=== PATIENT | female | born 1960 | race American Indian/Alaskan Native ===

== ENCOUNTER 2017-08-24 20:18 | Emergency (ER) | payer SELFPAY ==
[2017-08-24 21:34] LABS: Basophils % (Auto) 0.8 % (0.0-1.8); Eosinophils % (Auto) 0.3 % (0.0-4.3); Hematocrit 42.9 % (30.3-42.9); Hemoglobin 13.9 gm/dl (10.1-14.3); Mean Corpuscular HGB Conc 32 % (30-34); Mean Corpuscular Hemoglobin 35 pg (28-32); Mean Corpuscular Volume 107 fl (79-97); Platelet Count 221 K/mm3 (140-440); Red Blood Count 4.02 M/mm3 (3.65-5.03); Red Cell Distribution Width 15.1 % (13.2-15.2); White Blood Count 9.5 K/mm3 (4.5-11.0)
--- NOTE | 2017-08-24 21:34 | Cat Scan Report ---
FINAL REPORT PROCEDURE: CT HEAD/BRAIN WO CON TECHNIQUE: Computerized tomography of the head was performed without contrast material. HISTORY: RECENT MX FALLS COMPARISON: No prior studies are available for comparison. FINDINGS: Skull and scalp: Normal. Paranasal sinuses: Normal. Ventricles and subarachnoid spaces: Normal. Cerebrum: No evidence of hemorrhage, acute infarction or mass . Cerebellum and brainstem: No evidence of hemorrhage, acute infarction or mass. Vasculature: Normal. Comments: None. IMPRESSION: Normal Examination
[2017-08-24 21:48] LABS: Alanine Aminotransferase 46 units/L (7-56); Albumin 4.2 g/dL (3.9-5); Albumin/Globulin Ratio 1.1 %; Alkaline Phosphatase 103 units/L (35-129); Anion Gap 25 mmol/L; BUN/Creatinine Ratio 16.66; Blood Urea Nitrogen 10 mg/dL (7-17); Calcium 9.4 mg/dL (8.4-10.2); Carbon Dioxide 21 mmol/L (22-30); Chloride 93.3 mmol/L (98-107); Glucose 77 mg/dL (65-100); Potassium 4.8 mmol/L (3.6-5.0); Sodium 134 mmol/L (137-145); Total Protein 7.9 g/dL (6.3-8.2)
--- NOTE | 2017-08-24 22:03 | XRay Report ---
FINAL REPORT PROCEDURE: XR HAND 3+V RT TECHNIQUE: RIGHT hand radiographs, AP, lateral, and oblique views. CPT 79645-CT HISTORY: pain, swelling, deformity R hand s/p GLF COMPARISON: No prior studies are available for comparison. FINDINGS: Fracture (s) and/or Dislocation(s): Acute comminuted fracture is noted involving the distal radial metaphysis with posterior angulation of the distal fragment. There is also a comminuted fracture involving the ulnar styloid with mild degree posterior displacement. There is also irregularity of the tip of 5th distal phalanx with evidence of a fracture fragment. However the fracture margins are well-defined most likely representing an old fracture deformity.. Joint space(s): Normal . Soft tissues: Normal . Bone mineralization: Normal . Foreign bodies: None . IMPRESSION: Comminuted fractures involving the distal radial metaphysis and ulnar styloid. A fracture fragment involving the tip of the 5th distal phalanx appears to be of chronic nature. Clinical correlation is recommended..
[2017-08-24] MEDS ORDERED: PERCOCET 5/325 PO ONE (22:18)
--- NOTE | 2017-08-24 22:34 | Emergency Department Report ---
HPI - General Chief Complaint: Neuro Symptoms/Deficit Time Seen by Provider: 08/24/17 22:01 - HPI HPI: 56-year-old female presents to the emergency department, dropped off by her , with complaint of a ground-level fall earlier this morning and subsequent right wrist and arm pain. She has a history of lower extremity neuropathy that sometimes will cause some numbness in the legs and will make her fall. She was at the [facility] this morning when she lost her balance and tried to brace herself with her outstretched arms. She denies hitting her head or any loss of consciousness. When she got up she noticed that the wrist area looked deformed and swollen. She went home and put some ice on it but it continued to hurt so she came in for further evaluation. She is right-hand dominant. She also has a history of hypertension. She did not take anything for her symptoms prior to presentation. She does not have a primary care physician. ED Past Medical Hx - Past Medical History Previous Medical History?: Yes Hx Hypertension: Yes - Surgical History Past Surgical History?: No Additional Surgical History: - Social History Smoking Status: Current Every Day Smoker Substance Use Type: Alcohol - Medications Home Medications: Home Medications Medication Instructions Recorded Confirmed Last Taken Type Hydrochlorothiazide [HCTZ] 25 mg PO QDAY #30 tablet 09/09/15 Unknown Rx Spironolactone [Aldactone] 25 mg PO BID 09/09/15 09/09/15 09/09/15 13:10 History HYDROcodone/APAP 5-325 [[place] 1 each PO Q6HR PRN #14 tablet 08/25/17 Unknown Rx 5/325] ED Review of Systems ROS: Stated complaint: RT HAND PAIN Other details as noted in HPI Comment: All other systems reviewed and negative Constitutional: denies: chills, fever Eyes: denies: eye pain, eye discharge, vision change ENT: denies: ear pain, throat pain Respiratory: denies: cough, shortness of breath, wheezing Cardiovascular: denies: chest pain, palpitations Gastrointestinal: denies: abdominal pain, nausea, diarrhea Genitourinary: denies: urgency, dysuria, discharge Musculoskeletal: joint swelling, arthralgia Skin: other (ecchymosis). denies: rash Neurological: denies: headache, weakness, paresthesias Physical Exam - Physical Exam Vital Signs: Vital Signs 08/24/17 08/24/17 20:34 21:55 Temperature 98.8 F Pulse Rate 98 H Respiratory 18 18 Rate Blood Pressure 138/86 Blood Pressure 138/86 [Left] O2 Sat by Pulse 98 100 Oximetry Physical Exam: GENERAL: The patient is well-developed well-nourished. HENT: Normocephalic. Atraumatic. Patient has moist mucous membranes. EYES: Extraocular motions are intact. Pupils equal reactive to light bilaterally. NECK: Supple. Trachea is midline. CHEST/LUNGS: Clear to auscultation. There is no respiratory distress noted. HEART/CARDIOVASCULAR: Regular. There is no tachycardia. There is no gallop rub or murmur. ABDOMEN: Abdomen is soft, nontender. Patient has normal bowel sounds. There is no abdominal distention. SKIN: There is some nonpitting swelling to the right distal forearm and wrist that is worst in the dorsum/posterior region and there is some ecchymosis seen to the volar region. NEURO: The patient is awake, alert, and oriented. The patient is cooperative. The patient has no focal neurologic deficits. The patient has normal speech and gait. MUSCULOSKELETAL: Tenderness to palpation to the distal right forearm and right wrist where the patient appears to have a fracture.there is posterior swelling. Decreased range of motion of the right hand and wrist secondary to pain. Radial pulses posterior 4 bilaterally. Cap refill is 2 seconds. ED Course Vital Signs 08/24/17 08/24/17 20:34 21:55 Temperature 98.8 F Pulse Rate 98 H Respiratory 18 18 Rate Blood Pressure 138/86 Blood Pressure 138/86 [Left] O2 Sat by Pulse 98 100 Oximetry - Consultations Consultation #1: I spoke to the orthopedist transmission superintendent, Dr. Arizmendi, who listened to the x-ray results and presentation and agrees with the plan for a splint and outpatient follow-up. 08/24/17 22:34 ED Medical Decision Making - Lab Data Result diagrams: 08/24/17 21:11 08/24/17 21:11 - Radiology Data Radiology results: report reviewed WO CON TECHNIQUE: Computerized tomography of the head was performed without contrast material. HISTORY: RECENT MX FALLS COMPARISON: No prior studies are available for comparison. FINDINGS: Skull and scalp: Normal. Paranasal sinuses: Normal. Ventricles and subarachnoid spaces: Normal. Cerebrum: No evidence of hemorrhage, acute infarction or mass . Cerebellum and brainstem: No evidence of hemorrhage, acute infarction or mass. Vasculature: Normal. Comments: None. IMPRESSION: Normal Examination PROCEDURE: XR HAND 3+V RT TECHNIQUE: RIGHT hand radiographs, AP, lateral, and oblique views. CPT 92928-SX HISTORY: pain, swelling, deformity R hand s/p GLF COMPARISON: No prior studies are available for comparison. FINDINGS: Fracture (s) and/or Dislocation(s): Acute comminuted fracture is noted involving the distal radial metaphysis with posterior angulation of the distal fragment. There is also a comminuted fracture involving the ulnar styloid with mild degree posterior displacement. There is also irregularity of the tip of 5th distal phalanx with evidence of a fracture fragment. However the fracture margins are well-defined most likely representing an old fracture deformity.. Joint space(s): Normal . Soft tissues: Normal . Bone mineralization: Normal . Foreign bodies: None . IMPRESSION: Comminuted fractures involving the distal radial metaphysis and ulnar styloid. A fracture fragment involving the tip of the 5th distal phalanx appears to be of chronic nature. Clinical correlation is recommended.. - Medical Decision Making 56-year-old female presents to the emergency department with a complaint of a fall earlier today secondary to diabetic neuropathy causing some pain and deformity to the right wrist. X-ray confirms a distal radius comminuted fracture with a comminuted fracture of the ulnar styloid. Spoke to the orthopedist who agrees with outpatient follow-up and the patient was placed in a splint. A CT of the head was ordered and completed prior to me seeing the patient but it resulted as normal as well. She did not hit her head or have any loss of consciousness. A urinalysis was done as the patient says she was recently told that she has hematuria. The urinalysis today did not show any hematuria or signs of UTI. She was given referrals for orthopedist and some pain medication for home. She will return to the ER with any worsening of her symptoms or any acute distress. - Differential Diagnosis wrist fracture, contusion, vasovagal, orthostatic hypotension, diabetic alexa Critical Care Time: No Critical care attestation.: If time is entered above; I have spent that time in minutes in the direct care of this critically ill patient, excluding procedure time. ED Disposition Clinical Impression: Right forearm fracture Qualifiers: Encounter type: initial encounter Fracture type: closed Qualified Code(s): S52.91XA - Unspecified fracture of right forearm, initial encounter for closed fracture Right wrist fracture Qualifiers: Encounter type: initial encounter Fracture type: closed Qualified Code(s): S62.101A - Fracture of unspecified carpal bone, right wrist, initial encounter for closed fracture Fall Qualifiers: Encounter type: initial encounter Qualified Code(s): W19.XXXA - Unspecified fall, initial encounter Disposition: TO HOME OR SELFCARE Is pt being admited?: No Condition: Stable Instructions: Wrist Fracture in Adults (ED) Additional Instructions: Remain in the splint until follow-up with the orthopedist. Make sure that the splint does not get wet otherwise it will dissolve. You should cover it and a plastic bag when taking a shower or bath. You can use ice, wrapped in a bag and towel, over the splint to help with swelling over the next few days. I have given you a referral for a local orthopedist, Dr. Arizmendi, to follow up regarding her fracture. Return to the emergency Department with any worsening of your symptoms or any acute distress. You have been prescribed a medication that is sedating and therefore should not be taken prior to driving, working, and responsible for children and in no way should be mixed with alcohol of any quantity. Prescriptions: HYDROcodone/APAP 5-325 [[place] 5/325] 1 each PO Q6HR PRN #14 tablet PRN Reason: Pain Referrals: [facility] [Other] - 3-5 Days MARCELL ARIZMENDI MD [Staff Physician] - 3-5 Days Time of Disposition: 01:03
[2017-08-25 01:39] LABS: Bilirubin,Urine NEG (Negative); Blood,Urine SM (Negative); Ketones,Urine TR mg/dL (Negative); Leukocyte Esterase,Urine SM (Negative); Mucus,Urine FEW /HPF; Nitrite,Urine NEG (Negative); Protein,Urine <15 mg/dL mg/dL (Negative); Urobilinogen,Urine < 2.0 mg/dL (<2.0)
[2017-08-25 01:57] VITALS: BP 140/82
== END 2017-08-25 02:02 | disposition home or self-care (01) ==
LOC: ED 20:18
DX: S52.91XA Unspecified fracture of right forearm, initial encounter for closed fracture (principal); S62.101A Fracture of unspecified carpal bone, right wrist, initial encounter for closed fracture; I10 Essential (primary) hypertension; F17.200 Nicotine dependence, unspecified, uncomplicated; W19.XXXA Unspecified fall, initial encounter; Y93.9 Activity, unspecified; Y99.9 Unspecified external cause status; Y92.89 Other specified places as the place of occurrence of the external cause
CPT/HCPCS: 36415; 70450; 80053; 81001; 85025

== ENCOUNTER 2017-09-14 11:19 | Emergency (ER) | payer SELFPAY ==
[2017-09-14 11:37] VITALS: BP 144/91
--- NOTE | 2017-09-14 13:18 | Emergency Department Report ---
Upper Extremity - [facility] Chief Complaint: Extremity Injury, Upper Stated Complaint: RIGHT HAND NUMBNESS DUE TO CAST,BROKEN WRIST Time Seen by Provider: 09/14/17 13:08 Upper Extremity: Right Wrist (pain aching tingling since fracture 08/24/2017 " splint too tight") Occurred When: >5 Days (08/24/2017) Mechanism: Fall Severity: moderate Symptoms: Yes Pain with Movement, Yes Deformity, Yes Limited Range of Movement, Yes Numbness (intermittent ), No Weakness, No Swelling, No Bruising/Ecchymosis, No Laceration or Abrasion ED Review of Systems ROS: Stated complaint: RIGHT HAND NUMBNESS DUE TO CAST,BROKEN WRIST Other details as noted in HPI Constitutional: denies: chills, fever Eyes: denies: eye pain, eye discharge, vision change ENT: denies: ear pain, throat pain Respiratory: denies: cough, shortness of breath, wheezing Cardiovascular: as per HPI Endocrine: no symptoms reported Gastrointestinal: denies: abdominal pain, nausea, diarrhea Genitourinary: denies: urgency, dysuria, discharge Musculoskeletal: arthralgia, myalgia, other (right wrist ) Skin: denies: rash, lesions Neurological: numbness (right 4&5 th digits intermittent), abnormal gait (left sided weakness chronic ). 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) Additional medical history: Neuropathy - Surgical History Past Surgical History?: Yes Additional Surgical History: - Social History Smoking Status: Current Every Day Smoker Substance Use Type: Alcohol, Prescribed - Medications Home Medications: Home Medications Medication Instructions Recorded Confirmed Last Taken Type HYDROcodone/APAP 5-325 [[place] 1 each PO Q6HR PRN #14 tablet 08/25/17 Unknown Rx 5/325] Acetaminophen/Codeine [Tylenol 1 tab PO Q8H PRN #20 tab 09/14/17 Unknown Rx /Codeine # 3 tab] Hydrochlorothiazide [HCTZ] 25 mg PO QDAY #30 tablet 09/14/17 Unknown Rx Spironolactone [Aldactone] 25 mg PO BID #60 tablet 09/14/17 Unknown Rx Upper Extremity Exam - Exam General: Vital signs noted. No distress. Alert and acting appropriately. Head and Torso: No HEENT Abnormality, No Neck Tenderness, No Chest/Lungs Abnormality, No Abdominal Tenderness, No Back Tenderness Shoulder Exam: Yes Normal Range of Motion in Shoulder, No Shoulder Tenderness, No Clavicle Tenderness, No Shoulder Deformity, No AC Joint Tenderness Arm Exam: No Arm/Humerus Tenderness, No Arm Deformity Elbow: No Elbow Tenderness, No Normal Range of Motion in Elbow, No Elbow Deformity Forearm: No Forearm Tenderness, No Forearm Deformity, No Pain with Pronation, No Pain with Supination Wrist: Yes Wrist Tenderness, Yes Wrist Deformity (mild right lateral wrist deformity ), No Normal ROM in Wrist (rom restricted by pain ), No Snuffbox Tenderness, No Pain with Axial Thumb Compression Hand: Yes Normal ROM in Digit(s), No Hand Tenderness, No Hand Deformity, No Digit Tenderness, No Digit(s) Deformity, No Tendon Dysfunction CMS Exam: Yes Normal Distal Pulses, Yes Normal Capillary Refill, No Broken Skin , No Normal Distal Sensation (numbness to 4&5 digits ulnar side ) ED Course Vital Signs 09/14/17 11:29 Temperature 98.5 F Pulse Rate 96 H Respiratory 18 Rate Blood Pressure 144/91 O2 Sat by Pulse 99 Oximetry ED Medical Decision Making - Radiology Data Radiology results: report reviewed same as 08/24/2017, comminuted fracture of the distal radius with intra- articulare estension adn posterior angulation, U[place]ar syloid fracture - Medical Decision Making pt isia 57 y/o aaf who presents splint problem of right wrist, causing right wrist pain and tingling s/p fall and fracture on 08/24/2017 extremity splinted however pt states unable to follow up with orthopedics becuase she cannot afford co pay, pt denies new injury fall or trauma no change in symptoms same location duration and intensity as 08/24/2017, pt does endorse splint getting too tight at time and she cannot release candida wrap and put it back on properly, exam: mild lateral right wrist deformity , radial pulses + 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 Arizmendi will today to setup appointment. pt verbalized agreement and understanding of same, splint check completed at this time, spacing appropriate to 2 finger insertion, sonar subsystem equipment operator < 3 sec bilat pt advises that she has just made appointment with ortho Dr. Arizmendi will go in tomorrow. provider repeated splint care instructions including direction to return to emergency if symptoms worsen. pt again verbalizes understanding of same. Critical care attestation.: If time is entered above; I have spent that time in minutes in the direct care of this critically ill patient, excluding procedure time. ED Disposition Clinical Impression: Aftercare for cast or splint check or change Wrist fracture, closed Qualifiers: Encounter type: subsequent encounter Laterality: right Fracture healing: with delayed healing Qualified Code(s): S62.101G - Fracture of unspecified carpal bone, right wrist, subsequent encounter for fracture with delayed healing Disposition: TO HOME OR SELFCARE Is pt being admited?: No Does the pt Need Aspirin: No Condition: Good Instructions: Wrist Fracture in Adults (ED), Splint Care (ED) Prescriptions: Acetaminophen/Codeine [Tylenol /Codeine # 3 tab] 1 tab PO Q8H PRN #20 tab PRN Reason: Pain Hydrochlorothiazide [HCTZ] 25 mg PO QDAY #30 tablet Spironolactone [Aldactone] 25 mg PO BID #60 tablet Referrals: PRIMARY [facility] [Primary Care Provider] - 3-5 Days MARCELL ARIZMENDI MD [Staff Physician] - 3-5 Days Forms: Work/School Release Form(ED) Time of Disposition: 15:13
--- NOTE | 2017-09-14 14:59 | XRay Report ---
RIGHT WRIST, 3 VIEWS: History: wrist pain, injury. A comminuted, impacted fracture is identified in the distal radius with intra-articular extension at the radiocarpal joint. Posterior angulation is estimated at 20 degrees. Transverse fracture through the base of the ulnar styloid is also identified. The carpal bones are grossly intact. There is diffuse soft tissue swelling. IMPRESSION: Comminuted fracture of the distal radius with intra-articular extension and posterior angulation. Ulnar styloid fracture.
== END 2017-09-14 15:20 | disposition home or self-care (01) ==
LOC: ED 11:19
DX: S52.591D Other fractures of lower end of right radius, subsequent encounter for closed fracture with routine healing (principal); I10 Essential (primary) hypertension; F17.210 Nicotine dependence, cigarettes, uncomplicated; G62.9 Polyneuropathy, unspecified; X58.XXXD Exposure to other specified factors, subsequent encounter; Z86.73 Personal history of transient ischemic attack (TIA), and cerebral infarction without residual deficits
CPT/HCPCS: 99283

== ENCOUNTER 2018-06-24 11:23 | Emergency (ER) | payer SELFPAY ==
[2018-06-24 11:39] VITALS: BP 130/80
--- NOTE | 2018-06-24 11:58 | Emergency Department Report ---
ED Male HPI - General Chief complaint: Extremity Injury, Lower Stated complaint: LEG PAIN/TOE PAIN Time Seen by Provider: 06/24/18 11:54 Source: patient Mode of arrival: Wheelchair Limitations: No Limitations - Related Data Previous Rx's Medication Instructions Recorded Last Taken Type HYDROcodone/APAP 5-325 [[place] 1 each PO Q6HR PRN #14 tablet 08/25/17 Unknown Rx 5/325] Acetaminophen/Codeine [Tylenol 1 tab PO Q8H PRN #20 tab 09/14/17 Unknown Rx /Codeine # 3 tab] Hydrochlorothiazide [HCTZ] 25 mg PO QDAY #30 tablet 09/14/17 Unknown Rx Spironolactone [Aldactone] 25 mg PO BID #60 tablet 09/14/17 Unknown Rx Allergies Allergy/AdvReac Type Severity Reaction Status Date / Time No Known Allergies Allergy Unverified 09/09/15 13:14 ED Review of Systems ROS: Stated complaint: LEG PAIN/TOE PAIN Other details as noted in HPI ED Past Medical Hx - Past Medical History Hx Hypertension: Yes 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) Additional medical history: Neuropathy - Surgical History Additional Surgical History: , tubiligation, right wrist fx,frequent falls - Social History Smoking Status: Never Smoker Substance Use Type: Alcohol - Medications Home Medications: Home Medications Medication Instructions Recorded Confirmed Last Taken Type HYDROcodone/APAP 5-325 [[place] 1 each PO Q6HR PRN #14 tablet 08/25/17 Unknown Rx 5/325] Acetaminophen/Codeine [Tylenol 1 tab PO Q8H PRN #20 tab 09/14/17 Unknown Rx /Codeine # 3 tab] Hydrochlorothiazide [HCTZ] 25 mg PO QDAY #30 tablet 09/14/17 Unknown Rx Spironolactone [Aldactone] 25 mg PO BID #60 tablet 09/14/17 Unknown Rx ED Physical Exam - General Limitations: No Limitations ED Course Vital Signs 06/24/18 11:32 Temperature 98.1 F Pulse Rate 95 H Respiratory 18 Rate Blood Pressure 130/80 O2 Sat by Pulse 96 Oximetry Critical care attestation.: If time is entered above; I have spent that time in minutes in the direct care of this critically ill patient, excluding procedure time. ED Disposition Condition: Stable
--- NOTE | 2018-06-24 12:00 | Emergency Department Report ---
ED Lower Extremity HPI - General Chief Complaint: Extremity Injury, Lower Stated Complaint: LEG PAIN/TOE PAIN Time Seen by Provider: 06/24/18 11:54 Source: patient, family Mode of arrival: Wheelchair Limitations: No Limitations - History of Present Illness Initial Comments: This is a 57-year-old female who had a previous stroke and she has right-sided weakness and ambulates with a cane. She said while she was getting out of bed last night she fell and went down on her right knee and also injured her right foot and ankle. She is having pain and swelling to right knee and foot and ankle. Pain is 10 out of 10 [place] and worse with movement. No alleviating factors that she has not taken the medication per patient. She said pain is radiating from her right knee down to her right great toe. Denies any chest pain or shortness of breath. Denies any history of blood clots personally or in her family. Denies any calf pain. MD Complaint: knee injury, foot injury, fall -: Last night Injury: Knee: Right (pain and swelling after falling), Ankle: Right (pain and swelling after falling), Foot: Right (pain and swelling after falling) Type of Injury: other (fall injury) Place: home Severity: severe Severity scale (0 -10): 10 Improves With: nothing Worsens With: weight bearing, movement, palpation Context: fall Associated Symptoms: swelling, ambulatory. denies: snap/pop sensation, numbness , tingling, unable to bear weight Treatments Prior to Arrival: other (none) - Related Data Previous Rx's Medication Instructions Recorded Last Taken Type HYDROcodone/APAP 5-325 [[place] 1 each PO Q6HR PRN #14 tablet 08/25/17 Unknown Rx 5/325] Acetaminophen/Codeine [Tylenol 1 tab PO Q8H PRN #20 tab 09/14/17 Unknown Rx /Codeine # 3 tab] Hydrochlorothiazide [HCTZ] 25 mg PO QDAY #30 tablet 09/14/17 Unknown Rx Spironolactone [Aldactone] 25 mg PO BID #60 tablet 09/14/17 Unknown Rx oxyCODONE /ACETAMINOPHEN [Percocet 1 tab PO Q6HR PRN #16 tablet 06/24/18 Unknown Rx 5/325] Allergies Allergy/AdvReac Type Severity Reaction Status Date / Time No Known Allergies Allergy Unverified 09/09/15 13:14 ED Review of Systems ROS: Stated complaint: LEG PAIN/TOE PAIN Other details as noted in HPI Constitutional: denies: chills, fever Eyes: denies: eye pain, eye discharge ENT: throat pain. denies: congestion Respiratory: denies: cough, shortness of breath, SOB with exertion, SOB at rest , stridor, wheezing Cardiovascular: denies: chest pain, palpitations, dyspnea on exertion, edema, syncope, paroxysmal nocturnal dyspnea Gastrointestinal: denies: nausea, vomiting Musculoskeletal: joint swelling, arthralgia. denies: back pain, myalgia Skin: denies: rash Neurological: weakness (rt side). denies: headache, numbness, paresthesias, confusion, abnormal gait, vertigo ED Past Medical Hx - Past Medical History Previous Medical History?: Yes Hx Hypertension: Yes 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) Additional medical history: Neuropathy - Surgical History Past Surgical History?: Yes Additional Surgical History: , tubiligation, right wrist fx,frequent falls - Family History Family history: hypertension - Social History Smoking Status: Never Smoker Substance Use Type: Alcohol - Medications Home Medications: Home Medications Medication Instructions Recorded Confirmed Last Taken Type HYDROcodone/APAP 5-325 [[place] 1 each PO Q6HR PRN #14 tablet 08/25/17 Unknown Rx 5/325] Acetaminophen/Codeine [Tylenol 1 tab PO Q8H PRN #20 tab 09/14/17 Unknown Rx /Codeine # 3 tab] Hydrochlorothiazide [HCTZ] 25 mg PO QDAY #30 tablet 09/14/17 Unknown Rx Spironolactone [Aldactone] 25 mg PO BID #60 tablet 09/14/17 Unknown Rx oxyCODONE /ACETAMINOPHEN [Percocet 1 tab PO Q6HR PRN #16 tablet 06/24/18 Unknown Rx 5/325] ED Physical Exam - General Limitations: No Limitations General appearance: alert, in no apparent distress - Head Head exam: Present: atraumatic, normocephalic, normal inspection - Eye Eye exam: Present: normal appearance, PERRL, EOMI Pupils: Present: normal accommodation - ENT ENT exam: Present: normal exam, normal orophraynx, mucous membranes moist - Neck Neck exam: Present: normal inspection, full ROM, other (none [facility] Absent: tenderness, meningismus, lymphadenopathy - Respiratory Respiratory exam: Present: normal lung sounds bilaterally. Absent: respiratory distress - Cardiovascular Cardiovascular Exam: Present: regular rate, normal rhythm, normal heart sounds. Absent: systolic murmur, diastolic murmur - GI/Abdominal GI/Abdominal exam: Present: soft, normal bowel sounds. Absent: distended, tenderness, rigid - Extremities Exam Extremities exam: Present: normal inspection, full ROM, tenderness, normal capillary refill, joint swelling. Absent: pedal edema, calf tenderness - Expanded Lower Extremity Exam Right Hip exam: Present: normal inspection, full ROM, pelvic stability. Absent: tenderness, swelling, abrasion, laceration, ecchymosis, deformity, crepidus, dislocation, erythema, external rotation, internal rotation, shortening Upper Leg exam: Present: normal inspection, full ROM. Absent: tenderness, swelling, abrasion, laceration, ecchymosis, deformity, crepidus, dislocation, erythema Knee exam: Present: full ROM (full range of motion but painful with flexion and extension), tenderness (anterior knee), swelling (anterior knee). Absent: normal inspection, abrasion, laceration, ecchymosis, deformity, crepidus, dislocation, erythema, effusion, pain w/ pronation/supination, posterior draw sign, pain/laxity with valgus, pain/laxity with varus, full knee extension (due to the pain) Lower Leg exam: Present: normal inspection, full ROM. Absent: tenderness, swelling, abrasion, laceration, ecchymosis, deformity, crepidus, dislocation, erythema, palpable cord, James's sign Ankle exam: Present: full ROM (full range of motion but painful with dorsiflexion), tenderness (right ankle), swelling (right ankle). Absent: normal inspection, abrasion, laceration, ecchymosis, deformity, crepidus, dislocation, erythema Foot/Toe exam: Present: full ROM (full range of motion but painful with dorsiflexion), tenderness (right foot along metatarsal bone and great toe), swelling (right foot metatarsal bone first and right great toe). Absent: normal inspection, abrasion, laceration, ecchymosis, deformity, crepidus, dislocation, erythema, amputation, puncture wound, foreign body, calcaneal tenderness, tenderness at base of 5th metatarsal, nail avulsion, subungual hematoma Neuro vascular tendon exam: Present: no vascular compromise, significant pain with passive ROM of distal joint. Absent: pulse deficit, abnormal cap refill, sensory deficit, tendon deficit, extremity cold to touch, pallor, abnormal 2- point discrimination, decreased fine/light touch, foot drop, peroneal nerve deficit Gait: Positive: observed and limited by pain - Back Exam Back exam: Present: normal inspection, full ROM, other (ambulates with cane). Absent: tenderness, CVA tenderness (R), CVA tenderness (L), muscle spasm, paraspinal tenderness, vertebral tenderness - Neurological Exam Neurological exam: Present: alert, oriented X3, normal gait, reflexes normal. Absent: motor sensory deficit - Psychiatric Psychiatric exam: Present: normal affect, normal mood - Skin Skin exam: Present: warm, dry, intact, normal color. Absent: rash ED Course Vital Signs 06/24/18 11:32 Temperature 98.1 F Pulse Rate 95 H Respiratory 18 Rate Blood Pressure 130/80 O2 Sat by Pulse 96 Oximetry - Reevaluation(s) Reevaluation #1: 06/24/18 13:26 Patient received [place] 7.5/325 mg one tablet by mouth and Motrin 600 mg by mouth for pain to right knee, foot and ankle. She said pain is down to 2 out of 10 Reevaluation #2: 06/24/18 14:10 fracture to the proximal right fibula and fracture to right second through fourth toes. Splint to be placed and we will reevaluate Reevaluation #3: 06/24/18 15:34 Patient is stable status post OCL splint placement to right lower extremity. She has good color, sensation temperature and movement to toes of her left foot. - Orthopedic Splinting/Casting Injury #1 Side: right Lower Extremity Injury Location: lower leg, ankle, foot Lower Extremity Immobilizer: posterior splint Other Orthopedic Equipment: walker Additional Comments: Good CSMT. Posterior OCL from right foot to above her right knee. ED Lower Extremity MDM - Radiology Data Radiology results: report reviewed Patient had three-view x-ray of right knee, right ankle and right foot which was dictated by radiologist and report reviewed by myself. Patient with acute fracture to proximal fibula and fracture to the right second through fourth toe of right foot. Please see below for details Patient: TONY SELLERS MR#: [id number] : 1960 Acct:[id number] Age/Sex: 57 / F ADM Date: 06/24/18 Loc: ED Attending Dr: Ordering Physician: OTTO SALDIVAR Date of Service: 06/24/18 Procedure(s): XR knee 3V RT Accession Number(s): [id number] cc: OTTO SALDIVAR Fluoro Time In Minutes: FINAL REPORT EXAM: XR KNEE 3V RT HISTORY: fall with rt knee pain and swelling TECHNIQUE: Three views of the right knee. PRIORS: None. FINDINGS: There is an acute, oblique fracture of the right proximal fibula. No dislocation. There is diffuse osteopenia. No soft tissue abnormality. No joint effusion. IMPRESSION: Acute right proximal fibula fracture. Transcribed By: Dictated By: TEMITOPE DICKERSON MD Electronically Authenticated By: TEMITOPE DICKERSON MD Signed Date/Time: 06/24/181340 DD/ 40 TD/TT: 06/24/18 134 Patient: TONY SELLERS MR#: [id number] : 1960 Acct:[id number] Age/Sex: 57 / F ADM Date: 06/24/18 Loc: ED Attending Dr: Ordering Physician: OTTO SALDIVAR Date of Service: 06/24/18 Procedure(s): XR ankle 3+V RT Accession Number(s): [id number] cc: OTTO SALDIVAR Fluoro Time In Minutes: FINAL REPORT EXAM: XR ANKLE 3+V RT HISTORY: fall with rt ankle pain and swelling TECHNIQUE: AP, oblique and lateral radiographs of the right ankle. PRIORS: None. FINDINGS: No fracture. No dislocation. Normal mineralization. No soft tissue abnormality. The ankle mortise is symmetric. IMPRESSION: No acute right ankle abnormality. Transcribed By: Dictated By: TEMITOPE DICKERSON MD Electronically Authenticated By: TEMITOPE DICKERSON MD Signed Date/Time: 06/24/18 134 DD/ 43 TD/TT: 06/24/181343 Patient: TONY SELLERS MR#: [id number] : 1960 Acct:[id number] Age/Sex: 57 / F ADM Date: 06/24/18 Loc: ED Attending Dr: Ordering Physician: OTTO SALDIVAR Date of Service: 06/24/18 Procedure(s): XR foot 3+V RT Accession Number(s): [id number] cc: OTTO SALDIVAR Fluoro Time In Minutes: FINAL REPORT EXAM: XR FOOT 3+V RT HISTORY: fall with rt foot pain and swelling TECHNIQUE: AP, oblique and lateral radiographs of the right foot. PRIORS: None. FINDINGS: There is mild irregularity of the bases of the right 2nd through 4th toes. No dislocation. There is diffuse osteopenia. There is soft tissue swelling over the dorsum of the right foot. IMPRESSION: Possible nondisplaced fractures of the proximal aspects of the right 2nd through 4th toes which may be acute or chronic. Transcribed By: MG Dictated By: TEMITOPE DICKERSON MD Electronically Authenticated By: TEMITOPE DICKERSON MD Signed Date/Time: 06/24/181346 DD/ 46 TD/TT: 06/24/181346 - Medical Decision Making This is a 57-year-old female present to the hospital with complaint of falling last night and having pain and swelling to her right knee and right foot and ankle. She says she woke up this morning. Was worse. Patient has history of CVA with right-sided weakness and she ambulates with a cane. She denies any numbness or tingling I saw the patient and her physical exam is normal except she has swelling and tenderness to palpate the right anterior knee, right ankle and right foot along the great toe and first metatarsal bone area. Patient has pain in her range of motion to right knee right foot and ankle but she also has chronic weakness from review of CVA and ambulates with a cane. Her pain is better with pain medication. - Differential Diagnosis fracture, sprain, strain, dislocation, musculoskeletal pain Critical care attestation.: If time is entered above; I have spent that time in minutes in the direct care of this critically ill patient, excluding procedure time. ED Disposition Clinical Impression: Musculoskeletal pain of extremity Fractures of multiple bones of left lower extremity Qualifiers: Encounter type: initial encounter Fracture type: closed Qualified Code(s): S82.92XA - Unspecified fracture of left lower leg, initial encounter for closed fracture Right ankle sprain Qualifiers: Encounter type: initial encounter Involved ligament of ankle: unspecified ligament Qualified Code(s): S93.401A - Sprain of unspecified ligament of right ankle, initial encounter Fall, accidental Qualifiers: Encounter type: initial encounter Qualified Code(s): W19.XXXA - Unspecified fall, initial encounter Disposition: PAT REG,NO TRIAGE Is pt being admited?: No Does the pt Need Aspirin: No Condition: Stable Instructions: Ankle Sprain (ED), Leg Fracture (ED), Toe Fracture (ED), Fall Prevention for Older Adults (ED), Splint Care (ED), Musculoskeletal Pain (ED), RICE Therapy (ED) Additional Instructions: Please do not weight-bear to rt lower extremity for the next 5 days. Please follow up with orthopedic doctor as instructed in 2-3 days Percocet can cause drowsiness so please do not drive or operate heavy machinery while taking this medication. Use walker as instructed Follow discharge instruction and splint care Follow rice protocol per discharge instruction paperwork If he experienced, increased swelling, redness, numbness and tingling , pain radiating up your ankle to legs, fever or chills and inability to move/loss of sensation in left foot please return to the emergency room Prescriptions: oxyCODONE /ACETAMINOPHEN [Percocet 5/325] 1 tab PO Q6HR PRN #16 tablet PRN Reason: Pain Referrals: MARCELL FORREST MD [Staff Physician] - 2-3 Days your ,primary care physician [Other] - 2-3 Days
[2018-06-24] MEDS ORDERED: MOTRIN PO ONE (12:03)
--- NOTE | 2018-06-24 13:48 | XRay Report ---
FINAL REPORT EXAM: XR KNEE 3V RT HISTORY: fall with rt knee pain and swelling TECHNIQUE: Three views of the right knee. PRIORS: None. FINDINGS: There is an acute, oblique fracture of the right proximal fibula. No dislocation. There is diffuse osteopenia. No soft tissue abnormality. No joint effusion. IMPRESSION: Acute right proximal fibula fracture.
--- NOTE | 2018-06-24 13:51 | XRay Report ---
FINAL REPORT EXAM: XR ANKLE 3+V RT HISTORY: fall with rt ankle pain and swelling TECHNIQUE: AP, oblique and lateral radiographs of the right ankle. PRIORS: None. FINDINGS: No fracture. No dislocation. Normal mineralization. No soft tissue abnormality. The ankle mortise is symmetric. IMPRESSION: No acute right ankle abnormality.
--- NOTE | 2018-06-24 13:54 | XRay Report ---
FINAL REPORT EXAM: XR FOOT 3+V RT HISTORY: fall with rt foot pain and swelling TECHNIQUE: AP, oblique and lateral radiographs of the right foot. PRIORS: None. FINDINGS: There is mild irregularity of the bases of the right 2nd through 4th toes. No dislocation. There is diffuse osteopenia. There is soft tissue swelling over the dorsum of the right foot. IMPRESSION: Possible nondisplaced fractures of the proximal aspects of the right 2nd through 4th toes which may be acute or chronic.
== END 2018-06-24 15:51 | disposition home or self-care (01) ==
LOC: ED 11:23
DX: S82.401A Unspecified fracture of shaft of right fibula, initial encounter for closed fracture (principal); S92.514A Nondisplaced fracture of proximal phalanx of right lesser toe(s), initial encounter for closed fracture; S93.401A Sprain of unspecified ligament of right ankle, initial encounter; I10 Essential (primary) hypertension; Z86.73 Personal history of transient ischemic attack (TIA), and cerebral infarction without residual deficits; Z98.51 Tubal ligation status; W06.XXXA Fall from bed, initial encounter; Y93.89 Activity, other specified; Y92.89 Other specified places as the place of occurrence of the external cause; Y99.8 Other external cause status
CPT/HCPCS: 99283

== ENCOUNTER 2019-01-21 10:25 | Emergency (ER) | payer MEDICAID, OTHER, SELFPAY ==
[2019-01-21 11:10] VITALS: BP 150/85
--- NOTE | 2019-01-21 11:13 | Emergency Department Report ---
Blank Doc - Documentation Documentation: This is a 58-year-old female that presents with midsternum chest pain with SOB x2 weeks. Patient stated has been seeing her PCP for this condition. Denies any radiation of pain. PMH:HTN This initial assessment diagnostic orders/clinical plan/treatment(s) is/are subject to change based on patient's health status, clinical progression and re- assessment by fellow clinical providers in the ED. Further treatment and workup at subsequent clinical providers discretion. Patient/guardians urged not to elope from ED s their condition may be serious if not clinically assessed and managed. Initial orders include: 1-Patient sent to [facility] for further evaluation and treatment 2-Xrays 3- EKG 4- labs
[2019-01-21 12:13] LABS: Basophils # (Auto) 0.1 K/mm3 (0.0-0.1); Basophils % (Auto) 0.8 % (0.0-1.8); Eosinophils % (Auto) 0.3 % (0.0-4.3); Hematocrit 41.7 % (30.3-42.9); Hemoglobin 14.1 gm/dl (10.1-14.3); Lymphocytes # (Auto) 1.5 K/mm3 (1.2-5.4); Mean Corpuscular HGB Conc 34 % (30-34); Mean Corpuscular Volume 108 fl (79-97); Monocytes # (Auto) 0.6 K/mm3 (0.0-0.8); Platelet Count 229 K/mm3 (140-440); Red Blood Count 3.85 M/mm3 (3.65-5.03); Red Cell Distribution Width 16.7 % (13.2-15.2)
[2019-01-21 12:50] LABS: BUN/Creatinine Ratio 18; Blood Urea Nitrogen 7 mg/dL (7-17); Calcium 9.4 mg/dL (8.4-10.2); Hemolysis Index 11
--- NOTE | 2019-01-21 13:29 | XRay Report ---
ROUTINE CHEST, TWO VIEWS: HISTORY: chest pain. The trachea, heart, mediastinal contour, lung lee and bony thorax are unremarkable. IMPRESSION: Unremarkable chest x-ray.
--- NOTE | 2019-01-21 14:18 | Emergency Department Report ---
HPI - General Chief Complaint: Chest Pain Time Seen by Provider: 01/21/19 11:12 - HPI HPI: Pt. is a 58-y.o male presents to ED c/o constant, non-radiating, sharp, 7/10 intensity, made sided chest pain x 1 day. Pt. reports pain located to remain chest Pt. denies fever, chills, SOB, n/v, hands/feet swelling, recent trauma/injury, abdominal pain. Pt. states pain is aggravated with movement ED Past Medical Hx - Past Medical History Hx Hypertension: Yes 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) Additional medical history: Neuropathy - Surgical History Additional Surgical History: , tubiligation, right wrist fx,frequent falls - Social History Smoking Status: Current Every Day Smoker Substance Use Type: Alcohol - Medications Home Medications: Home Medications Medication Instructions Recorded Confirmed Last Taken Type HYDROcodone/APAP 5-325 [[place] 1 each PO Q6HR PRN #14 tablet 08/25/17 Unknown Rx 5/325] Acetaminophen/Codeine [Tylenol 1 tab PO Q8H PRN #20 tab 09/14/17 Unknown Rx /Codeine # 3 tab] Spironolactone [Aldactone] 25 mg PO BID #60 tablet 09/14/17 Unknown Rx hydroCHLOROthiazide [HCTZ] 25 mg PO QDAY #30 tablet 09/14/17 Unknown Rx oxyCODONE /ACETAMINOPHEN [Percocet 1 tab PO Q6HR PRN #16 tablet 06/24/18 Unknown Rx 5/325] Naproxen [Naprosyn] 500 mg PO BID #30 tablet 01/21/19 Unknown Rx ED Review of Systems ROS: Stated complaint: CHEST/L SIDE PAIN/DIFF IN WALKING Other details as noted in HPI Comment: All other systems reviewed and negative Physical Exam - Physical Exam Vital Signs: Vital Signs 01/21/19 11:07 Temperature 97.9 F Pulse Rate 81 Respiratory 16 Rate Blood Pressure 150/85 [Left] O2 Sat by Pulse 97 Oximetry Physical Exam: GENERAL: Alert and oriented x3, no apparent distress, Normal Gait, atraumatic. HEAD: Head is normocephalic and a-traumatic. NECK: Supple. Non edematous, No carotid bruits. No lymphadenopathy or thyromegaly. No C-spine tenderness LUNGS: Symetrical with respiration, No wheezing, no rales or crackles, CTAB. HEART: S1, S2 present, regular rate and rhythm without murmur, no rubs, no gallops. Non tender to palpation ABDOMEN: No organomegaly was noted,Positive bowel sounds, soft, and non- distended. . Nontender to palpation on all Quadrants, NO CVA tenderness. BACK: Full range of motion, no spinal tenderness, nontender to palpation. SKIN: Warm and dry, No lesions, No ulceration or induration present. ED Course Vital Signs 01/21/19 11:07 Temperature 97.9 F Pulse Rate 81 Respiratory 16 Rate Blood Pressure 150/85 [Left] O2 Sat by Pulse 97 Oximetry ED Medical Decision Making - Lab Data Result diagrams: 01/21/19 11:46 01/21/19 11:46 Laboratory Last Values WBC 8.1 K/mm3 (4.5-11.0) 01/21/19 11:46 RBC 3.85 M/mm3 (3.65-5.03) 01/21/19 11:46 Hgb 14.1 gm/dl (10.1-14.3) 01/21/19 11:46 Hct 41.7 % (30.3-42.9) 01/21/19 11:46 MCV 108 fl (79-97) H 01/21/19 11:46 MCH 37 pg (28-32) H 01/21/19 11:46 MCHC 34 % (30-34) 01/21/19 11:46 RDW 16.7 % (13.2-15.2) H 01/21/19 11:46 Plt Count 229 K/mm3 (140-440) 01/21/19 11:46 Lymph % (Auto) 19.0 % (13.4-35.0) 01/21/19 11:46 [place] % (Auto) 7.0 % (0.0-7.3) 01/21/19 11:46 Eos % (Auto) 0.3 % (0.0-4.3) 01/21/19 11:46 Baso % (Auto) 0.8 % (0.0-1.8) 01/21/19 11:46 Lymph # 1.5 K/mm3 (1.2-5.4) 01/21/19 11:46 [place] # 0.6 K/mm3 (0.0-0.8) 01/21/19 11:46 Eos # 0.0 K/mm3 (0.0-0.4) 01/21/19 11:46 Baso # 0.1 K/mm3 (0.0-0.1) 01/21/19 11:46 Seg Neutrophils % 72.9 % (40.0-70.0) H 01/21/19 11:46 Seg Neutrophils # 5.9 K/mm3 (1.8-7.7) 01/21/19 11:46 Sodium 140 mmol/L (137-145) 01/21/19 11:46 Potassium 4.1 mmol/L (3.6-5.0) 01/21/19 11:46 Chloride 97.3 mmol/L (98-107) L 01/21/19 11:46 Carbon Dioxide 22 mmol/L (22-30) 01/21/19 11:46 Anion Gap 25 mmol/L 01/21/19 11:46 BUN 7 mg/dL (7-17) 01/21/19 11:46 Creatinine 0.4 mg/dL (0.7-1.2) L 01/21/19 11:46 Estimated GFR > 60 ml/min 01/21/19 11:46 BUN/Creatinine Ratio 18 % 01/21/19 11:46 Glucose 81 mg/dL (65-100) 01/21/19 11:46 Calcium 9.4 mg/dL (8.4-10.2) 01/21/19 11:46 Troponin T < 0.010 ng/mL (0.00-0.029) 01/21/19 11:46 - Radiology Data Radiology results: report reviewed, image reviewed Fluoro Time In Minutes: ROUTINE CHEST, TWO VIEWS: HISTORY: chest pain. The trachea, heart, mediastinal contour, lung lee and bony thorax are unremarkable. IMPRESSION: Unremarkable chest x-ray. Transcribed By: TTR Dictated By: DU PIZANO JR, MD Electronically Authenticated By: DU PIZANO JR, MD Signed Date/Time: 01/21/19 9446 - Medical Decision Making 58-year-old female present with typical chest pain All labs within normal limits Discussed findings with the patient. Discussed the patient will follow up with primary care physician in 3-5 days. Discussed return to ED if worsening symptoms. Patient able to speak in clear sentences and understands instructions given. Critical care attestation.: If time is entered above; I have spent that time in minutes in the direct care of this critically ill patient, excluding procedure time. ED Disposition Clinical Impression: Chest wall pain Disposition: DC-01 TO HOME OR SELFCARE Is pt being admited?: No Does the pt Need Aspirin: No Condition: Stable Instructions: Chest Pain (ED), Costochondritis (ED) Additional Instructions: Make sure to follow up with the primary care physician as discussed. Follow up with [facility] heart doctor as you've been told by your primary care physician Take all your medications as you've been prescribed. If you have any worsening symptoms or develop new symptoms please return to ED immediately. Prescriptions: Naproxen [Naprosyn] 500 mg PO BID #30 tablet Referrals: DARREN SUAREZ MD [Primary Care Provider] - 3-5 Days Forms: Accompanied Note, Work/School Release Form(ED) Time of Disposition: 14:17
== END 2019-01-21 14:27 | disposition home or self-care (01) ==
LOC: ED 10:25
DX: R07.89 Other chest pain (principal); I10 Essential (primary) hypertension; F17.200 Nicotine dependence, unspecified, uncomplicated; Z98.51 Tubal ligation status
CPT/HCPCS: 36415; 71046; 80048; 84484; 85025; 93005; 93010; 99284

== ENCOUNTER 2020-07-19 02:49 | Emergency (ER) | payer MEDICARE ==
[2020-07-19] MEDS ORDERED: SODIUM CHLORIDE 0.9% 1000 ML 1,000 ML IV ONE ×2 (03:59→07:19)
[2020-07-19 05:11] LABS: Basophils # (Auto) 0.1 K/mm3 (0.0-0.1); Basophils % (Auto) 1.1 % (0.0-1.8); Eosinophils % (Auto) 0.4 % (0.0-4.3); Hemoglobin 14.4 gm/dl (10.1-14.3); Lymphocytes # (Auto) 2.2 K/mm3 (1.2-5.4); Lymphocytes % (Auto) 24.3 % (13.4-35.0); Mean Corpuscular HGB Conc 34 % (30-34); Mean Corpuscular Volume 109 fl (79-97); Monocytes # (Auto) 0.6 K/mm3 (0.0-0.8); Monocytes % (Auto) 7.3 % (0.0-7.3); Platelet Count 246 K/mm3 (140-440); Red Blood Count 3.84 M/mm3 (3.65-5.03); Red Cell Distribution Width 16.6 % (13.2-15.2)
[2020-07-19 05:27] LABS: Alanine Aminotransferase 19 units/L (7-56); Blood Urea Nitrogen 9 mg/dL (7-17); Calcium 9.6 mg/dL (8.4-10.2); Hemolysis Index 9
[2020-07-19 05:33] LABS: BUN/Creatinine Ratio 18; Bilirubin,Direct < 0.2 mg/dL (0-0.2)
[2020-07-19 06:38] LABS: Bacteria,Urine 1+ /HPF (Negative); Bilirubin,Urine NEG (Negative); Blood,Urine NEG (Negative); Color,Urine Yellow (Yellow); Mucus,Urine FEW /HPF; Protein,Urine <15 mg/dL mg/dL (Negative); Urobilinogen,Urine < 2.0 mg/dL (<2.0)
--- NOTE | 2020-07-19 07:12 | Emergency Department Report ---
ED Abdominal Pain HPI - General Chief Complaint: Abdominal Pain Stated Complaint: UNABLE TO URINATE Time Seen by Provider: 07/19/20 06:09 Source: patient Mode of arrival: Ambulatory Limitations: No Limitations - History of Present Illness Initial Comments: Patient is 59 years old female with history of hypertension. Patient presented to the ER stating that he is she is unable to urinate since 8:00 last night. Patient is also complaining of suprapubic abdominal pain and distention. Patient denied any fever or chills. No upper abdominal pain. No chest pain or shortness of breath. Patient stated that she never had any issue like this before. MD Complaint: abdominal pain - Related Data Previous Rx's Medication Instructions Recorded Last Taken Type Spironolactone [Aldactone] 25 mg PO BID #60 tablet 09/14/17 3 Days Ago Rx ~03/18/20 25 MG hydroCHLOROthiazide [HCTZ] 25 mg PO QDAY #30 tablet 09/14/17 3 Days Ago Rx ~03/18/20 25 MG Docusate Sodium [Colace] 100 mg PO BID PRN #20 capsule 03/21/20 Unknown Rx Gabapentin 300 mg PO Q8HR #15 capsule 03/21/20 Unknown Rx HYDROcodone/APAP 5-325 [[place] 1 each PO Q6HR PRN #14 tablet 03/21/20 Unknown Rx 5-325 mg TAB] Methyl Salicylate/Menthol [[place]eng[place] 57 gm TP TID PRN #1 cream..g. 03/21/20 Unknown Rx Greaseless Cream] Pantoprazole [Protonix TAB] 40 mg PO BID #60 tablet 03/21/20 Unknown Rx Sucralfate [Carafate] 1 gm PO ACHS 30 Days #30 oral.liqd 03/21/20 Unknown Rx Allergies Allergy/AdvReac Type Severity Reaction Status Date / Time No Known Allergies Allergy Verified 03/19/20 18:27 ED Review of Systems ROS: Stated complaint: UNABLE TO URINATE Other details as noted in HPI Comment: All other systems reviewed and negative Constitutional: denies: chills, fever Respiratory: denies: cough, shortness of breath, SOB with exertion, SOB at rest, wheezing Cardiovascular: denies: chest pain, palpitations, dyspnea on exertion, orthopnea Gastrointestinal: abdominal pain. denies: nausea, vomiting, diarrhea, constipation, hematemesis, melena, hematochezia Musculoskeletal: denies: back pain Neurological: denies: headache, weakness, numbness, paresthesias, confusion ED Past Medical Hx - Past Medical History Previous Medical History?: Yes Hx Hypertension: Yes (Had ETT 6y ago; unable to climb stairs because of neuropathy) 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) Hx Liver Disease: Yes Additional medical history: Neuropathy - Surgical History Past Surgical History?: Yes Additional Surgical History: , tubiligation, right wrist fx,frequent falls - Social History Smoking Status: Never Smoker Substance Use Type: None - Medications Home Medications: Home Medications Medication Instructions Recorded Confirmed Last Taken Type Spironolactone [Aldactone] 25 mg PO BID #60 tablet 09/14/17 03/21/20 3 Days Ago Rx ~03/18/20 25 MG hydroCHLOROthiazide [HCTZ] 25 mg PO QDAY #30 tablet 09/14/17 03/21/20 3 Days Ago Rx ~03/18/20 25 MG Docusate Sodium [Colace] 100 mg PO BID PRN #20 capsule 03/21/20 Unknown Rx Gabapentin 300 mg PO Q8HR #15 capsule 03/21/20 Unknown Rx HYDROcodone/APAP 5-325 [[place] 1 each PO Q6HR PRN #14 tablet 03/21/20 Unknown Rx 5-325 mg TAB] Methyl Salicylate/Menthol [[place] 57 gm TP TID PRN #1 cream..g. 03/21/20 Unknown Rx Greaseless Cream] Pantoprazole [Protonix TAB] 40 mg PO BID #60 tablet 03/21/20 Unknown Rx Sucralfate [Carafate] 1 gm PO ACHS 30 Days #30 oral.liqd 03/21/20 Unknown Rx ED Physical Exam - General Limitations: No Limitations General appearance: alert, in no apparent distress - Head Head exam: Present: atraumatic, normocephalic, normal inspection - Eye Eye exam: Present: normal appearance - ENT ENT exam: Present: normal exam, normal orophraynx, mucous membranes moist - Neck Neck exam: Present: normal inspection, full ROM. Absent: tenderness, meningismus, lymphadenopathy, thyromegaly - Respiratory Respiratory exam: Present: normal lung sounds bilaterally - Cardiovascular Cardiovascular Exam: Present: regular rate, normal rhythm, normal heart sounds - GI/Abdominal GI/Abdominal exam: Present: soft, distended (Suprapubic), tenderness (Suprapubic), normal bowel sounds. Absent: guarding, rebound, rigid, organomegaly, mass, bruit, pulsatile mass, hernia - Extremities Exam Extremities exam: Present: normal inspection, full ROM, normal capillary refill. Absent: pedal edema, calf tenderness - Back Exam Back exam: Present: normal inspection, full ROM. Absent: CVA tenderness (R), CVA tenderness (L) - Neurological Exam Neurological exam: Present: alert, oriented X3, CN II-XII intact, normal gait, reflexes normal. Absent: motor sensory deficit - Psychiatric Psychiatric exam: Present: normal mood - Skin Skin exam: Present: warm, intact, normal color ED Course Vital Signs 07/19/20 07/19/20 07/19/20 02:52 02:56 03:50 Temperature 98.6 F Pulse Rate 102 H 99 H Respiratory 18 14 Rate Blood Pressure 133/87 O2 Sat by Pulse 95 Oximetry 07/19/20 07/19/20 07/19/20 03:51 03:52 03:53 Temperature Pulse Rate 95 H 97 H 96 H Respiratory 21 19 18 Rate Blood Pressure 127/89 127/89 127/89 O2 Sat by Pulse 97 98 98 Oximetry 07/19/20 07/19/20 07/19/20 03:55 03:57 03:59 Temperature Pulse Rate 95 H 94 H 96 H Respiratory 21 16 19 Rate Blood Pressure 127/89 127/89 135/88 O2 Sat by Pulse 95 99 98 Oximetry 07/19/20 07/19/20 07/19/20 04:00 04:01 04:03 Temperature Pulse Rate 93 H 93 H 95 H Respiratory 20 20 22 Rate Blood Pressure 135/88 135/88 135/88 O2 Sat by Pulse 95 93 Oximetry 07/19/20 07/19/20 07/19/20 04:05 04:07 04:09 Temperature Pulse Rate 95 H 95 H 94 H Respiratory 21 17 21 Rate Blood Pressure 135/88 135/88 135/88 O2 Sat by Pulse 93 96 97 Oximetry 07/19/20 07/19/20 07/19/20 04:11 04:45 04:47 Temperature Pulse Rate 96 H 94 H 95 H Respiratory 20 18 18 Rate Blood Pressure 135/88 135/88 135/88 O2 Sat by Pulse 93 97 97 Oximetry 07/19/20 07/19/20 07/19/20 04:49 04:51 04:52 Temperature Pulse Rate 95 H 94 H 96 H Respiratory 21 18 19 Rate Blood Pressure 135/88 135/88 140/82 O2 Sat by Pulse 97 97 96 Oximetry 07/19/20 07/19/20 07/19/20 04:53 04:55 04:57 Temperature Pulse Rate 94 H 93 H 94 H Respiratory 21 18 21 Rate Blood Pressure 135/88 135/88 135/88 O2 Sat by Pulse 96 96 99 Oximetry 07/19/20 07/19/20 07/19/20 04:59 05:00 05:01 Temperature Pulse Rate 95 H 93 H 96 H Respiratory 19 20 21 Rate Blood Pressure 135/88 117/75 117/75 O2 Sat by Pulse 95 95 Oximetry 07/19/20 07/19/20 07/19/20 05:03 05:05 05:07 Temperature Pulse Rate 93 H 92 H 92 H Respiratory 18 19 18 Rate Blood Pressure 117/75 117/75 117/75 O2 Sat by Pulse 93 91 91 Oximetry 07/19/20 07/19/20 07/19/20 05:09 05:11 05:13 Temperature Pulse Rate 94 H 94 H 93 H Respiratory 17 20 17 Rate Blood Pressure 117/75 140/82 140/82 O2 Sat by Pulse 92 95 92 Oximetry 07/19/20 07/19/20 07/19/20 05:15 05:17 05:19 Temperature Pulse Rate 94 H 95 H 94 H Respiratory 17 17 17 Rate Blood Pressure 140/82 140/82 140/82 O2 Sat by Pulse 91 90 90 Oximetry 07/19/20 07/19/20 07/19/20 05:21 05:23 05:25 Temperature Pulse Rate 94 H 94 H 95 H Respiratory 10 L 16 16 Rate Blood Pressure 140/82 140/82 140/82 O2 Sat by Pulse 93 92 93 Oximetry 07/19/20 07/19/20 07/19/20 05:27 05:29 05:30 Temperature Pulse Rate 101 H 96 H 97 H Respiratory 21 19 19 Rate Blood Pressure 140/82 115/74 115/74 O2 Sat by Pulse 94 97 94 Oximetry 07/19/20 07/19/20 07/19/20 05:31 05:33 05:35 Temperature Pulse Rate 98 H 96 H 95 H Respiratory 18 22 15 Rate Blood Pressure 115/74 115/74 115/74 O2 Sat by Pulse 94 93 92 Oximetry 07/19/20 07/19/20 07/19/20 05:37 05:39 05:41 Temperature Pulse Rate 104 H 107 H Respiratory 28 H 24 Rate Blood Pressure 115/74 115/74 117/75 O2 Sat by Pulse 94 96 97 Oximetry 07/19/20 07/19/20 07/19/20 05:43 05:45 05:47 Temperature Pulse Rate 108 H Respiratory 30 H Rate Blood Pressure 117/75 117/75 117/75 O2 Sat by Pulse 96 98 96 Oximetry 07/19/20 07/19/20 07/19/20 05:49 05:51 05:53 Temperature Pulse Rate 106 H Respiratory 17 11 L 10 L Rate Blood Pressure 117/75 117/75 117/75 O2 Sat by Pulse 97 Oximetry 07/19/20 07/19/20 07/19/20 05:54 05:58 06:01 Temperature Pulse Rate Respiratory 11 L Rate Blood Pressure 117/75 117/75 117/75 O2 Sat by Pulse Oximetry 07/19/20 07/19/20 07/19/20 06:04 06:11 06:12 Temperature Pulse Rate Respiratory Rate Blood Pressure 117/75 117/75 117/75 O2 Sat by Pulse 74 L Oximetry 07/19/20 07/19/20 07/19/20 06:14 06:24 06:27 Temperature Pulse Rate Respiratory Rate Blood Pressure 117/75 117/75 117/75 O2 Sat by Pulse 76 L 74 L Oximetry 07/19/20 07/19/20 07/19/20 06:29 06:36 06:38 Temperature Pulse Rate Respiratory Rate Blood Pressure 117/75 117/75 117/75 O2 Sat by Pulse 75 L Oximetry 07/19/20 08:31 Temperature Pulse Rate Respiratory Rate Blood Pressure 137/84 O2 Sat by Pulse Oximetry ED Medical Decision Making - Lab Data Result diagrams: 07/19/20 04:36 07/19/20 04:36 - Medical Decision Making Patient is 59 years old female with history of hypertension. Patient presented to the ER stating that he is she is unable to urinate since 8:00 last night. Patient is also complaining of suprapubic abdominal pain and distention. Patient denied any fever or chills. No upper abdominal pain. No chest pain or shortness of breath. Patient stated that she never had any issue like this before. Patient presented with urine retention with overflow incontinence. Robbins catheter placed and patient had more than 500 mL initially. Labs reviewed and is unremarkable except for urine is positive for UTI. Patient given Rocephin 1 g IV and patient advised to follow-up with her primary care physician and a urologist in the next 2 to 3 days. Patient sent home with a Robbins catheter. Critical care attestation.: If time is entered above; I have spent that time in minutes in the direct care of this critically ill patient, excluding procedure time. ED Disposition Clinical Impression: Urinary retention, UTI (urinary tract infection) Disposition: TO HOME OR SELFCARE Is pt being admited?: No Condition: Stable Instructions: Abdominal Pain (ED), Acute Urinary Retention in Women (ED), Uri nary Tract Infection in Women (ED), Robbins Catheter Placement and Care (ED) Referrals: PRIMARY MD CHIRAG [Primary Care Provider] - 3-5 Days SHAMIR DOMÍNGUEZ MD [Staff Physician] - 3-5 Days
[2020-07-19] MEDS ORDERED: cefTRIAXone/NS 1 GM/50 ML 1 GM/50 ML BAG IV ONE (07:20)
[2020-07-19] MEDS ORDERED: ONDANSETRON 4 MG/2 ML INJ IV ONE (08:34)
[2020-07-19] MEDS ORDERED: MORPHINE 4 MG/1 ML INJ IV ONE (08:34)
[2020-07-19 10:15] VITALS: BP 115/69
== END 2020-07-19 10:16 | disposition home or self-care (01) ==
LOC: ED 02:49
DX: R33.9 Retention of urine, unspecified (principal); I10 Essential (primary) hypertension; Z86.73 Personal history of transient ischemic attack (TIA), and cerebral infarction without residual deficits; Z98.51 Tubal ligation status; Z98.890 Other specified postprocedural states; Z79.899 Other long term (current) drug therapy
CPT/HCPCS: 36415; 51702; 80048; 80076; 81001; 83690; 85025; 87086; 96361; 96365; 96375; 99284; J0696; J2270; J2405; J7030

== ENCOUNTER 2021-02-13 11:39 | Emergency (ER) | payer MEDICARE, MEDICAID ==
--- NOTE | 2021-02-13 12:06 | Emergency Department Report ---
- General Chief Complaint: Pain General Stated Complaint: COUGHING/SOB/RASH ON FACE Time Seen by Provider: 02/13/21 11:58 Source: patient Mode of arrival: Ambulatory Limitations: No Limitations - History of Present Illness Initial Comments: Patient is a 60-year-old female presents emergency room with complaints of URI symptoms that began 3 days ago. She has associated generalized body aches, headache, chills, cough with small amount of mucus production, diarrhea. She denies any fever, vomiting, chest pain, shortness of breath, abdominal pain, urinary symptoms. She states that her sister traveled from [place] and was having similar symptoms and then the patient got sick a few days later. She states that she also broke out in a rash to her face that began this morning. She denies any new soaps, lotions, detergents, medications, anything new that she is aware of. She states that the rash itches. She denies any facial swelling, difficulty breathing, sensation of throat closing. She has a past medical history of hypertension and neuropathy. No allergies to medications. She is a non-smoker. - Related Data Previous Rx's Medication Instructions Recorded Last Taken Type Spironolactone [Aldactone] 25 mg PO BID #60 tablet 09/14/17 3 Days Ago Rx ~03/18/20 25 MG hydroCHLOROthiazide [HCTZ] 25 mg PO QDAY #30 tablet 09/14/17 3 Days Ago Rx ~03/18/20 25 MG Docusate Sodium [Colace] 100 mg PO BID PRN #20 capsule 03/21/20 Unknown Rx Gabapentin 300 mg PO Q8HR #15 capsule 03/21/20 Unknown Rx HYDROcodone/APAP 5-325 [[place] 1 each PO Q6HR PRN #14 tablet 03/21/20 Unknown Rx 5-325 mg TAB] Methyl Salicylate/Menthol [[place] 57 gm TP TID PRN #1 cream..g. 03/21/20 Unknown Rx Greaseless Cream] Pantoprazole [Protonix TAB] 40 mg PO BID #60 tablet 03/21/20 Unknown Rx Sucralfate [Carafate] 1 gm PO ACHS 30 Days #30 oral.liqd 03/21/20 Unknown Rx Ciprofloxacin HCl [Ciprofloxacin 500 mg PO Q12HR #14 tab 07/19/20 Unknown Rx TAB] Ondansetron [Zofran Odt] 4 mg PO Q8HR PRN #14 tab.rapdis 07/19/20 Unknown Rx traMADoL [Ultram 50 MG tab] 50 mg PO Q4HR PRN #14 tablet 07/19/20 Unknown Rx Benzonatate [Tessalon Perles] 100 mg PO Q8HR PRN #12 capsule 02/13/21 Unknown Rx Hydrocortisone 1% [Hydrocortisone 1 applicatio TP TID 7 Days #1 tube 02/13/21 Unknown Rx 1% CREAM] Prednisone [predniSONE 10 mg 10 mg PO .TAPER #1 tab.ds.pk 02/13/21 Unknown Rx (6-Day Pack, 21 Tabs)] diphenhydrAMINE [Benadryl CAP] 25 mg PO Q8HR PRN #12 capsule 02/13/21 Unknown Rx guaiFENesin/DEXTROMETHORPHAN 1 each PO Q8HR PRN #14 capsule 02/13/21 Unknown Rx [Coricidin Hbp Chest Molina-Cough] Allergies Allergy/AdvReac Type Severity Reaction Status Date / Time No Known Allergies Allergy Verified 03/19/20 18:27 ED Review of Systems ROS: Stated complaint: COUGHING/SOB/RASH ON FACE Other details as noted in HPI Comment: All other systems reviewed and negative ED Past Medical Hx - Past Medical History Previous Medical History?: Yes Hx Hypertension: Yes (Had ETT 6y ago; unable to climb stairs because of neuropathy) 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) Hx Liver Disease: Yes Additional medical history: Neuropathy - Surgical History Past Surgical History?: Yes Additional Surgical History: , tubiligation, right wrist fx,frequent falls - Social History Smoking Status: Never Smoker Substance Use Type: None - Medications Home Medications: Home Medications Medication Instructions Recorded Confirmed Last Taken Type Spironolactone [Aldactone] 25 mg PO BID #60 tablet 09/14/17 03/21/20 3 Days Ago Rx ~03/18/20 25 MG hydroCHLOROthiazide [HCTZ] 25 mg PO QDAY #30 tablet 09/14/17 03/21/20 3 Days Ago Rx ~03/18/20 25 MG Docusate Sodium [Colace] 100 mg PO BID PRN #20 capsule 03/21/20 Unknown Rx Gabapentin 300 mg PO Q8HR #15 capsule 03/21/20 Unknown Rx HYDROcodone/APAP 5-325 [[place] 1 each PO Q6HR PRN #14 tablet 03/21/20 Unknown Rx 5-325 mg TAB] Methyl Salicylate/Menthol [[place] 57 gm TP TID PRN #1 cream..g. 03/21/20 Unknown Rx Greaseless Cream] Pantoprazole [Protonix TAB] 40 mg PO BID #60 tablet 03/21/20 Unknown Rx Sucralfate [Carafate] 1 gm PO ACHS 30 Days #30 oral.liqd 03/21/20 Unknown Rx Ciprofloxacin HCl [Ciprofloxacin 500 mg PO Q12HR #14 tab 07/19/20 Unknown Rx TAB] Ondansetron [Zofran Odt] 4 mg PO Q8HR PRN #14 tab.rapdis 07/19/20 Unknown Rx traMADoL [Ultram 50 MG tab] 50 mg PO Q4HR PRN #14 tablet 07/19/20 Unknown Rx Benzonatate [Tessalon Perles] 100 mg PO Q8HR PRN #12 capsule 02/13/21 Unknown Rx Hydrocortisone 1% [Hydrocortisone 1 applicatio TP TID 7 Days #1 tube 02/13/21 Unknown Rx 1% CREAM] Prednisone [predniSONE 10 mg 10 mg PO .TAPER #1 tab.ds.pk 02/13/21 Unknown Rx (6-Day Pack, 21 Tabs)] diphenhydrAMINE [Benadryl CAP] 25 mg PO Q8HR PRN #12 capsule 02/13/21 Unknown Rx guaiFENesin/DEXTROMETHORPHAN 1 each PO Q8HR PRN #14 capsule 02/13/21 Unknown Rx [Coricidin Hbp Chest Molina-Cough] ED Physical Exam - General Limitations: No Limitations General appearance: alert, in no apparent distress - Head Head exam: Present: atraumatic, normocephalic - Eye Eye exam: Present: normal appearance - ENT ENT exam: Present: mucous membranes moist - Respiratory Respiratory exam: Present: normal lung sounds bilaterally. Absent: respiratory distress, wheezes, rales, rhonchi, stridor, chest wall tenderness, accessory muscle use, decreased breath sounds, prolonged expiratory - Cardiovascular Cardiovascular Exam: Present: regular rate, normal rhythm, normal heart sounds. Absent: systolic murmur, diastolic murmur, rubs, gallop - Neurological Exam Neurological exam: Present: alert, oriented X3 - Psychiatric Psychiatric exam: Present: normal affect, normal mood - Skin Skin exam: Present: warm, dry, other (small erythematous papules present to the face, no blistering, no crusting, no facial edema, no angioedema) ED Course Vital Signs 02/13/21 02/13/21 11:53 12:10 Temperature 99.2 F Pulse Rate 89 Respiratory 20 Rate Blood Pressure 154/104 Blood Pressure 143/87 [Left] O2 Sat by Pulse 96 Oximetry ED Medical Decision Making - Radiology Data Radiology results: report reviewed Ordering Physician: OTTO RICHARDS Date of Service: 02/13/21 Procedure(s): XR chest routine 2V Accession Number(s): [id number] cc: OTTO RICHARDS Fluoro Time In Minutes: CHEST 2 VIEWS INDICATION / CLINICAL INFORMATION: cough. COMPARISON: January 21 2019 FINDINGS: SUPPORT DEVICES: None. HEART / MEDIASTINUM: No significant abnormality. LUNGS / PLEURA: No significant pulmonary or pleural abnormality. No pneumothorax. No visible area of pneumonia. ADDITIONAL FINDINGS: No significant additional findings. IMPRESSION: 1. No acute findings. No interval change. Signer Name: Mary Kay Gil MD Signed: 02/13/2021 12:24 PM Workstation Name: [id number] Transcribed By: JR Dictated By: Mary Kay Gil MD Electronically Authenticated By: Mary Kay Gil MD Signed Date/Time: 02/13/21 1224 DD/ 1223 TD/TT: Print - Medical Decision Making Patient is a 60-year-old female presents emergency room with complaints of URI symptoms that began 3 days ago. She has associated generalized body aches, headache, chills, cough with small amount of mucus production, diarrhea. She denies any fever, vomiting, chest pain, shortness of breath, abdominal pain, urinary symptoms. She states that her sister traveled from [place] and was having similar symptoms and then the patient got sick a few days later. She states that she also broke out in a rash to her face that began this morning. She denies any new soaps, lotions, detergents, medications, anything new that she is aware of. She states that the rash itches. She denies any facial swelling, difficulty breathing, sensation of throat closing. She has a past medical history of hypertension and neuropathy. No allergies to medications. She is a non-smoker. Vitals are stable. On exam:small erythematous papules present to the face, no blistering, no crusting, no facial edema, no angioedema, breath sounds are clear bilaterally, no wheezing, no rales, no rhonchi. Chest x-ray: 1. No acute findings. No interval change. symptoms likely related to viral URI and contact dermatitis. She has no clinical signs of bacterial pneumonia or bacterial bronchitis at this time. Patient is presenting with the symptoms during COVID-19 pandemic, discussed COVID-19 with patient, discuss strict return precautions, discussed self quarantine, discussed outpatient testing. Advised patient Please use medication as prescribed. Please increase your fluid intake over the next several days. May take Tylenol as needed for fever or body aches. Follow-up with a primary care doctor for reexamination. Return to emergency room immediately for any new or worsening symptoms including but not limited to difficulty breathing, shortness of breath, severe chest pain, unable to tolerate by mouth intake, etc. Please self quarantine for 10 days from the onset of your symptoms. Please do not go out in public. If you are around others at home please wear a mask. If you need to cough or sneeze please do so in a napkin and immediately throw it away and immediately wash your hands. Wash your hands frequently. Wipe everything down. Recommend for you to get COVID-19 testing, may have this done at primary care doctor, health department, [facility], etc. Critical care attestation.: If time is entered above; I have spent that time in minutes in the direct care of this critically ill patient, excluding procedure time. ED Disposition Clinical Impression: Viral URI Contact dermatitis Qualifiers: Contact dermatitis type: unspecified Contact dermatitis trigger: unspecified trigger Qualified Code(s): L25.9 - Unspecified contact dermatitis, unspecified cause Disposition: DC- TO HOME OR SELFCARE Is pt being admited?: No Does the pt Need Aspirin: No Condition: Stable Instructions: Viral Respiratory Infection, [id number], Contact Dermatitis Additional Instructions: Please use medication as prescribed. Please increase your fluid intake over the next several days. May take Tylenol as needed for fever or body aches. Follow-up with a primary care doctor for reexamination. Return to emergency room immediately for any new or worsening symptoms including but not limited to difficulty breathing, shortness of breath, severe chest pain, unable to tolerate by mouth intake, etc. Please self quarantine for 10 days from the onset of your symptoms. Please do not go out in public. If you are around others at home please wear a mask. If you need to cough or sneeze please do so in a napkin and immediately throw it away and immediately wash your hands. Wash your hands frequently. Wipe everything down. Recommend for you to get COVID-19 testing, may have this done at primary care doctor, health department, [facility], etc. Prescriptions: diphenhydrAMINE [Benadryl CAP] 25 mg PO Q8HR PRN #12 capsule PRN Reason: itching guaiFENesin/DEXTROMETHORPHAN [Coricidin Hbp Chest Molina-Cough] 1 each PO Q8HR PRN #14 capsule PRN Reason: cough/congestion Hydrocortisone 1% [Hydrocortisone 1% CREAM] 1 applicatio TP TID 7 Days #1 tube Prednisone [predniSONE 10 mg (6-Day Pack, 21 Tabs)] 10 mg PO .TAPER #1 tab.ds.pk Benzonatate [Tessalon Perles] 100 mg PO Q8HR PRN #12 capsule PRN Reason: cough Referrals: PRIMARY CARE,MD [Primary Care Provider] - 2-3 Days Time of Disposition: 12:47 Print Language: SLOVAK
[2021-02-13 12:11] VITALS: BP 143/87
--- NOTE | 2021-02-13 12:28 | XRay Report ---
CHEST 2 VIEWS INDICATION / CLINICAL INFORMATION: cough. COMPARISON: January 21 2019 FINDINGS: SUPPORT DEVICES: None. HEART / MEDIASTINUM: No significant abnormality. LUNGS / PLEURA: No significant pulmonary or pleural abnormality. No pneumothorax. No visible area of pneumonia. ADDITIONAL FINDINGS: No significant additional findings. IMPRESSION: 1. No acute findings. No interval change. Signer Name: Mary Kay Gil MD Signed: 02/13/2021 12:24 PM Workstation Name: [id number]
== END 2021-02-13 12:56 | disposition home or self-care (01) ==
LOC: ED 11:39
DX: J06.9 Acute upper respiratory infection, unspecified (principal); L25.9 Unspecified contact dermatitis, unspecified cause; B97.89 Other viral agents as the cause of diseases classified elsewhere; I10 Essential (primary) hypertension; Z86.73 Personal history of transient ischemic attack (TIA), and cerebral infarction without residual deficits; Z98.51 Tubal ligation status; Z98.890 Other specified postprocedural states; Z79.899 Other long term (current) drug therapy
CPT/HCPCS: 71046